=== PATIENT | male | born 1975 | race African-American/Black ===

== ENCOUNTER 2017-01-04 16:38 | Emergency (ER) | payer MEDICAID ==
[~2017-01-04] VITALS: Ht 180.3 cm; Wt 68.0 kg
[~2017-01-04 16:38] MED LIST: AZITHROMYCIN250 MG PO
[2017-01-04 16:53] VITALS: BP 137/88
[2017-01-04] MEDS ORDERED: BACITRACIN-P28.35 GM TP (18:22)
--- NOTE | 2017-01-04 18:22 | Emergency Room Report ---
History of Present Illness General Chief Complaint: Laceration Source: Patient Present Illness HPI 41-year-old male presents to the emergency department complaining of laceration to the left forearm with some bleeding after a sharp edge of tile accidentally cut him. Patient states he is up-to-date with tetanus vaccination he denies taking blood thinning medications. Pt. reports 8/10 in severity pain upon palpation. Patient denies bony pain. Patient denies weakness in the affected extremity.Denies numbness tingling or loss of sensation or gross motor movements of the extremities, incontinence of bowel or bladder. Denies CP, Palpitations, LOC, AMS, dizziness, Changes in Vision, Sensation, paresthesias, or a sudden severe headache. Allergies: Coded Allergies: No Known Allergies (Unverified , 12/26/11) Patient History Past Medical History: see triage record Past Surgical History: none Pertinent Family History: none Immunizations: UTD Reviewed Nursing Documentation: PMH: Agreed, PSxH: Agreed Nursing Documentation-PMH Past Medical History: No Stated History Review of Systems All Other Systems: negative except mentioned in HPI Physical Exam Vital Signs Date Time Temp Pulse Resp B/P (MAP) Pulse Ox O2 Delivery O2 Flow Rate FiO2 01/04/17 16:53 98.2 58 16 137/88 98 Room Air Sp02 EP Interpretation: reviewed, normal General Appearance: no apparent distress, alert, GCS 15, non-toxic Head: normocephalic, atraumatic Eyes: bilateral eye normal inspection, bilateral eye PERRL ENT: hearing grossly normal, normal voice Neck: full range of motion, supple/symm/no masses Respiratory: lungs clear, normal breath sounds Cardiovascular #1: regular rate, rhythm, normal capillary refill Cardiovascular #2: 2+ radial (R), 2+ radial (L) Musculoskeletal: back normal, gait/station normal, normal range of motion, non- tender Neurologic: alert, oriented x3, responsive, motor strength/tone normal, sensory intact, speech normal Psychiatric: judgement/insight normal, memory normal, mood/affect normal Skin: normal color, no rash, warm/dry, well hydrated, laceration - linear left forearm laceration approx 2 cm in length, no obvious FB, bleeding is controlled at this time, no obvious tendon involvement Procedures Laceration/Wound Repair Laceration/Wound Repair : Consent: Verbal Wound Location: upper extremity - left forearm Wound's Depth, Shape: linear Wound Length (cm): 2 Wound Explored: clean Irrigated w/ Saline (ccs): 500 Anesthesia: 1% Lidocaine Volume Anesthetic (ccs): 3 Wound Debrided: minimal Wound Repaired With: sutures Suture Size/Type: 4:0 Number of Sutures: 3 Sterile Dressing Applied?: Yes Splint Applied?: No Sling Applied?: Yes Patient Tolerated: Well Complications: None Medical Decision Making PA Attestation Dr. Moreno is my supervising Physician whom patient management has been discussed with. Diagnostic Impression: Primary Impression: Laceration ER Course 41-year-old male presents to the emergency department complaining of laceration to the left forearm with some bleeding after a sharp edge of tile accidentally cut him. Patient states he is up-to-date with tetanus vaccination he denies taking blood thinning medications. Pt. reports 8/10 in severity pain upon palpation. Patient denies bony pain. Patient denies weakness in the affected extremity.Denies numbness tingling or loss of sensation or gross motor movements of the extremities, incontinence of bowel or bladder. Denies CP, Palpitations, LOC, AMS, dizziness, Changes in Vision, Sensation, paresthesias, or a sudden severe headache. Ddx considered but are not limited to laceration, tendon injury, cellulitis, amputation Vital signs: are WNL, pt. is afebrile H&PE are most consistent with: linear left forearm laceration approx 2 cm in length ORDERS: none required at this time, the diagnosis is clinical ED INTERVENTIONS: -Tetanus vaccine was administered as pt. vaccination status was unknown. - The wound was copiously irrigated with normal saline, and explored for foreign body for which no FB was found. - pt. is anesthetized with 1%lidocaine approx 3 cc - The wound was approximated and closed using 3 interrupted 4.0 Prolene sutures. -Bacitracin and sterile dressing is applied. -- Left arm Sling applied by pet care technician. Pt. remains neurovascularly intact. Discussed with patient: That we make every effort to approximate the laceration as best as we can so that scarring will be as cosmetically pleasing as possible with our limited cosmetic skill set in the Emergency dept. Regardless of our best efforts there will be scarring after laceration repair. The extent of scarring is unknown at this time. DISCHARGE: At this time pt. is stable for d/c to home. Will provide printed patient care instructions, and any necessary prescriptions. Care plan and follow up instructions have been discussed with the patient prior to discharge. Last Vital Signs Date Time Temp Pulse Resp B/P (MAP) Pulse Ox O2 Delivery O2 Flow Rate FiO2 01/04/17 16:53 98.2 58 16 137/88 98 Room Air Disposition: HOME, SELF-CARE Condition: Stable Scripts Bacitracin/Polymyxin B Sulfate (BACITRACIN-POLYMYXIN OINTMENT) 28.35 Gm Oint...g. 1 APPLIC TP BID, #28.3 GM Prov: Libby Allred 01/04/17 Patient Instructions: Laceration Care, Adult Additional Instructions: Take medications as directed. SUTURE REMOVAL IN 7-10 Days Follow up with a Primary Care Provider in 3-5 days, even if your symptoms have resolved. --Please review list of primary care clinics, if you do not already have a primary care provider Return sooner to ED if new symptoms occur, or current symptoms become worse. - Please note that this Emergency Department Report was dictated using [email or web address] software, occasionally this can lead to erroneous entry secondary to interpretation by the dictation equipment. Libby Allred Jan 04, 2017 18:22
[2017-01-04] MEDS ORDERED: Bacitracin Oint UD TOPIC ONE (18:30)
[2017-01-04] MEDS ORDERED: Lidocaine 1% MPF 10mg/ml 5ml IM ONE (18:30)
[2017-01-04 19:33] VITALS: BP 136/72
== END 2017-01-04 19:40 | disposition home or self-care (01) ==
LOC: EMR 18:23
DX: S51.812A Laceration without foreign body of left forearm, initial encounter (principal); W45.8XXA Other foreign body or object entering through skin, initial encounter; Y92.89 Other specified places as the place of occurrence of the external cause
CPT/HCPCS: 12001; 99283; Z7502